=== PATIENT | female | born 1965 | race African-American/Black ===

== ENCOUNTER 2019-07-29 01:06 | Emergency (ER) | payer SELFPAY ==
[~2019-07-29] VITALS: Ht 167.6 cm; Wt 64.0 kg
[2019-07-29] MEDS ORDERED: IBUPROFEN 600MG TABLET PO ONE (03:00)
[2019-07-29] MEDS ORDERED: CYCLOBENZAPRINE 10MG TABLET PO ONE (03:00)
[2019-07-29 05:51] VITALS: BP 144/81
== END 2019-07-29 05:54 | disposition home or self-care (01) ==
LOC: ER 01:19
DX: S80.02XA Contusion of left knee, initial encounter (principal); M54.5 Low back pain; F17.200 Nicotine dependence, unspecified, uncomplicated; V03.99XA Pedestrian with other conveyance injured in collision with car, pick-up truck or van, unspecified whether traffic or nontraffic accident, initial encounter; Y93.89 Activity, other specified; Y92.89 Other specified places as the place of occurrence of the external cause; Y99.8 Other external cause status
CPT/HCPCS: 73562; 99283

== ENCOUNTER 2022-08-10 11:59 | Emergency (ER) | payer MEDICAID, OTHER ==
[~2022-08-10] VITALS: Ht 170.2 cm; Wt 95.0 kg
[2022-08-10 12:10] VITALS: BP 170/103
[2022-08-10] MEDS ORDERED: GUAIFENESIN 200MG/10ML SUGAR FREE UDC PO ONE (15:30)
[2022-08-10] MEDS ORDERED: ACETAMINOPHEN 325MG TABLET PO ONE (15:30)
[2022-08-10] MEDS ORDERED: TOPUD MT (15:48)
[2022-08-10] MEDS ORDERED: PROP1INH NS (15:48)
[2022-08-10] MEDS ORDERED: BENZ100C86 MT (15:48)
== END 2022-08-10 16:21 | disposition home or self-care (01) ==
LOC: ER 11:59
DX: B34.9 Viral infection, unspecified (principal); Z20.822 Contact with and (suspected) exposure to COVID-19; Z98.890 Other specified postprocedural states
CPT/HCPCS: 71045; 87426; 87804; 99284; C9803